=== PATIENT | female | born 1950 | race Caucasian/White ===

== ENCOUNTER 2022-06-20 14:29 | Inpatient (IN) | payer OTHER ==
[2022-06-20] MEDS ORDERED: MEROPENEM 500 MG in DEXTROSE 5%-WATER 100 ML IVPB ONE (16:13)
[2022-06-20] MEDS ORDERED: MEROPENEM 500 MG VIAL (RESTRICTED TO ID) IVPB ONE (16:28)
[2022-06-20 17:11] LABS: BASO % 0.7 % (0-2.0); EOS % 2.6 % (0-4.5); HEMATOCRIT 34.5 % (32.4-45.2); HEMOGLOBIN 11.2 GM/dL (10.7-15.3); LYMPH % 19.6 % (8-40); MCH 25.4 pg (25.7-33.7); MCHC 32.4 g/dl (32.0-36.0); MEAN CELL VOLUME 78.5 fl (80-96); MEAN PLT VOLUME 7.6 fl (7.5-11.1); MONO % 6.2 % (3.8-10.2); NEUT % 70.9 % (42.8-82.8); PLATELET COUNT 377 10^3/uL (134-434); RBC 4.39 M/mm3 (3.60-5.2); RDW 19.2 % (11.6-15.6); WHITE BLOOD COUNT 6.2 K/mm3 (4.0-10.0)
[2022-06-20 17:30] LABS: CALCIUM 8.6 mg/dL (8.5-10.1)
[2022-06-20 17:31] LABS: ALBUMIN 2.7 g/dl (3.4-5.0); BLOOD UREA NITROGEN 14.9 mg/dL (7-18)
[2022-06-20 17:33] LABS: ACTIVATED PTT 32.4 SECONDS (25.2-36.5); INR 1.17 (0.83-1.09); PROTHROMBIN TIME (PATIENT) 13.5 SEC (9.7-13.0)
[2022-06-20 17:35] LABS: CREATININE 0.8 mg/dL (0.55-1.3)
[2022-06-20 17:36] LABS: BILIRUBIN,TOTAL 0.2 mg/dL (0.2-1); TOT PROT 8.4 g/dl (6.4-8.2)
[2022-06-20] MEDS: VANCOMYCIN/WATER FOR INJ (PEG) 1,000 MG/200 ML BAG IVPB SCH (22:51)
[2022-06-20] MEDS: INSULIN SLIDING SCALE (NOVOLOG) 1 VIAL SQ SCH (22:51)
[2022-06-21] MEDS: MEROPENEM 1 GM in DEXTROSE 5%-WATER 100 ML IVPB SCH ×5 (02:38→17:52)
[2022-06-21 04:39] VITALS: BMI 33.5
[2022-06-21] MEDS: INSULIN SLIDING SCALE (NOVOLOG) 1 VIAL SQ SCH ×4 (06:43→22:35)
[2022-06-21 08:50] LABS: BASO % 0.1 % (0-2.0); EOS % 0.8 % (0-4.5); HEMATOCRIT 39.3 % (32.4-45.2); HEMOGLOBIN 12.4 GM/dL (10.7-15.3); LYMPH % 4.7 % (8-40); MCH 24.5 pg (25.7-33.7); MCHC 31.6 g/dl (32.0-36.0); MEAN CELL VOLUME 77.5 fl (80-96); MEAN PLT VOLUME 7.5 fl (7.5-11.1); MONO % 2.9 % (3.8-10.2); NEUT % 91.5 % (42.8-82.8); PLATELET COUNT 388 10^3/uL (134-434); RBC 5.07 M/mm3 (3.60-5.2); RDW 19.6 % (11.6-15.6); WHITE BLOOD COUNT 12.2 K/mm3 (4.0-10.0)
[2022-06-21] MEDS: VANCOMYCIN/WATER FOR INJ (PEG) 1,000 MG/200 ML BAG IVPB SCH (09:14)
[2022-06-21 09:22] LABS: ALBUMIN 2.7 g/dl (3.4-5.0); CALCIUM 8.8 mg/dL (8.5-10.1)
[2022-06-21 09:23] LABS: BLOOD UREA NITROGEN 12.3 mg/dL (7-18)
[2022-06-21 09:25] LABS: CREATININE 0.6 mg/dL (0.55-1.3)
[2022-06-21 09:27] LABS: BILIRUBIN,TOTAL 0.6 mg/dL (0.2-1); TOT PROT 8.4 g/dl (6.4-8.2)
[2022-06-21 09:37] LABS: ANISOCYTOSIS 1+; MACROCYTOSIS 1+
[2022-06-21] MEDS ORDERED: LOSARTAN POTASSIUM 25 MG TABLET PO SCH (10:00)
[2022-06-21] MEDS: COLLAGENASE CLOSTRIDIUM HIST. 30 GRAMS TUBE TP SCH (15:21)
[2022-06-21] MEDS: LOSARTAN POTASSIUM 25 MG TABLET PO SCH (15:21)
[2022-06-21] MEDS: DOXYCYCLINE HYCLATE 100 MG CAPSULE PO SCH (17:42)
[2022-06-21] MEDS: ACETAMINOPHEN 325 MG TABLET (FP) PO PRN (17:44)
[2022-06-21] MEDS: GABAPENTIN 300 MG CAPSULE PO SCH ×2 (17:44→22:25)
[2022-06-21] MEDS: VANCOMYCIN 1,000 MG in DEXTROSE 5%-WATER - 250 ML IVPB SCH ×2 (17:47→17:52)
[2022-06-21] MEDS: ROSUVASTATIN CA 10 MG TABLET PO SCH (18:28)
[2022-06-21] MEDS: LEVOTHYROXINE 75 MCG, LEVOTHYROXINE 100 MCG PO SCH (18:28)
[2022-06-21] MEDS ORDERED: PATIENT'S OWN MEDICATION (NON-FORMULARY) (Levothyroxine Sodium [Levothyroxine] 175 MCG Cap PO SCH (18:30)
[2022-06-22] MEDS: MEROPENEM 1 GM in DEXTROSE 5%-WATER 100 ML IVPB SCH ×3 (01:33→17:22)
[2022-06-22] MEDS: LEVOTHYROXINE 75 MCG, LEVOTHYROXINE 100 MCG PO SCH (06:33)
[2022-06-22] MEDS: GABAPENTIN 300 MG CAPSULE PO SCH ×3 (06:33→21:37)
[2022-06-22] MEDS: INSULIN SLIDING SCALE (NOVOLOG) 1 VIAL SQ SCH ×4 (06:43→21:42)
[2022-06-22 08:36] LABS: BASO % 0.4 % (0-2.0); EOS % 3.6 % (0-4.5); HEMATOCRIT 34.8 % (32.4-45.2); HEMOGLOBIN 11.1 GM/dL (10.7-15.3); LYMPH % 24.4 % (8-40); MCH 24.6 pg (25.7-33.7); MCHC 31.9 g/dl (32.0-36.0); MEAN CELL VOLUME 77.3 fl (80-96); MEAN PLT VOLUME 7.2 fl (7.5-11.1); MONO % 8.3 % (3.8-10.2); NEUT % 63.3 % (42.8-82.8); PLATELET COUNT 338 10^3/uL (134-434); RBC 4.51 M/mm3 (3.60-5.2); RDW 19.2 % (11.6-15.6)
[2022-06-22 08:49] LABS: ALBUMIN 2.2 g/dl (3.4-5.0); BLOOD UREA NITROGEN 11.7 mg/dL (7-18); CALCIUM 8.4 mg/dL (8.5-10.1)
[2022-06-22 08:52] LABS: CREATININE 0.6 mg/dL (0.55-1.3)
[2022-06-22 08:53] LABS: BILIRUBIN,TOTAL 0.4 mg/dL (0.2-1); TOT PROT 7.3 g/dl (6.4-8.2)
[2022-06-22] MEDS: DOXYCYCLINE HYCLATE 100 MG CAPSULE PO SCH ×2 (10:03→17:22)
[2022-06-22] MEDS: LOSARTAN POTASSIUM 25 MG TABLET PO SCH (10:04)
[2022-06-22] MEDS: COLLAGENASE CLOSTRIDIUM HIST. 30 GRAMS TUBE TP SCH (10:05)
[2022-06-22] MEDS: ACETAMINOPHEN 325 MG TABLET (FP) PO PRN (17:21)
[2022-06-22] MEDS: ROSUVASTATIN CA 10 MG TABLET PO SCH (21:37)
[2022-06-23] MEDS ORDERED: MEROPENEM 1 GM VIAL (RESTRICTED TO ID) IVPB ONE (01:51)
[2022-06-23] MEDS: MEROPENEM 1 GM in DEXTROSE 5%-WATER 100 ML IVPB SCH ×4 (01:57→17:44)
[2022-06-23] MEDS: ACETAMINOPHEN 325 MG TABLET (FP) PO PRN ×3 (02:03→22:06)
[2022-06-23] MEDS: GABAPENTIN 300 MG CAPSULE PO SCH ×3 (06:20→22:00)
[2022-06-23] MEDS: LEVOTHYROXINE 75 MCG, LEVOTHYROXINE 100 MCG PO SCH (06:20)
[2022-06-23] MEDS: INSULIN SLIDING SCALE (NOVOLOG) 1 VIAL SQ SCH ×4 (06:28→22:07)
[2022-06-23] MEDS: LOSARTAN POTASSIUM 25 MG TABLET PO SCH (09:54)
[2022-06-23] MEDS: DOXYCYCLINE HYCLATE 100 MG CAPSULE PO SCH ×2 (09:54→17:13)
[2022-06-23] MEDS: COLLAGENASE CLOSTRIDIUM HIST. 30 GRAMS TUBE TP SCH (10:06)
[2022-06-23] MEDS: ROSUVASTATIN CA 10 MG TABLET PO SCH (22:00)
[2022-06-24] MEDS: MEROPENEM 1 GM in DEXTROSE 5%-WATER 100 ML IVPB SCH ×3 (01:47→17:08)
[2022-06-24] MEDS: ACETAMINOPHEN 325 MG TABLET (FP) PO PRN ×2 (06:24→22:20)
[2022-06-24] MEDS: LOSARTAN POTASSIUM 25 MG TABLET PO SCH ×2 (06:24→10:37)
[2022-06-24] MEDS: GABAPENTIN 300 MG CAPSULE PO SCH ×3 (06:24→22:15)
[2022-06-24] MEDS: LEVOTHYROXINE 75 MCG, LEVOTHYROXINE 100 MCG PO SCH (06:24)
[2022-06-24] MEDS ORDERED: sitaGLIPtin PHOSPHATE 50 MG TABLET PO SCH (07:00)
[2022-06-24] MEDS: INSULIN SLIDING SCALE (NOVOLOG) 1 VIAL SQ SCH ×4 (08:05→22:16)
[2022-06-24 09:03] LABS: INR 1.24 (0.83-1.09); PROTHROMBIN TIME (PATIENT) 14.3 SEC (9.7-13.0)
[2022-06-24] MEDS: COLLAGENASE CLOSTRIDIUM HIST. 30 GRAMS TUBE TP SCH (10:31)
[2022-06-24] MEDS ORDERED: D5-1/2NS+10 MEQ KCL - 10 MEQ/1,000 ML INFUS.BAG IV SCH (10:45)
[2022-06-24] MEDS ORDERED: BACITRACIN ZINC 15 GM TUBE TOPICAL OINTMENT ONE (13:00)
[2022-06-24] MEDS ORDERED: LIDOCAINE HCL 1%, 10 MG/ML (10ML VIAL) MDV ONE (13:00)
[2022-06-24] MEDS ORDERED: DEXAMETHASONE SOD PHOSPHATE 4 MG/1 ML VIAL ONE (13:00)
[2022-06-24] MEDS ORDERED: BUPIVACAINE HCL/PF 0.5% (5MG/ML) 10 ML VIAL ONE (13:00)
[2022-06-24] MEDS ORDERED: GENTAMICIN SO4 80 MG/2 ML VIAL ONE ×2 (13:08→13:55)
[2022-06-24] MEDS ORDERED: ONDANSETRON 4 MG/2 ML VIAL IVPUSH PRN ×2 (13:08→14:27)
[2022-06-24] MEDS ORDERED: PROPOFOL 20 ML ONE (13:10)
[2022-06-24] MEDS ORDERED: MIDAZOLAM HCL 2 MG/2 ML SINGLE DOSE VIAL ONE (13:11)
[2022-06-24] MEDS ORDERED: LACTATED RINGERS SOLUTION 1,000 ML IV SCH ×2 (13:15→14:27)
[2022-06-24] MEDS ORDERED: LIDOCAINE HCL 1%, 10 MG/ML (20ML VIAL) INF ONE (13:27)
[2022-06-24] MEDS ORDERED: BUPIVACAINE HCL/PF 0.5% (5MG/ML) 10 ML VIAL IJ ONE (13:27)
[2022-06-24] MEDS ORDERED: GENTAMICIN SO4 80 MG/2 ML VIAL IVPB ONE ×2 (13:49)
[2022-06-24] MEDS ORDERED: ACETAMINOPHEN INJECTION 100 ML IVPB ONE (14:15)
[2022-06-24] MEDS ORDERED: ONDANSETRON 4 MG/2 ML VIAL ONE (14:16)
[2022-06-24] MEDS: D5-1/2NS+10 MEQ KCL - 10 MEQ/1,000 ML INFUS.BAG IV SCH (17:07)
[2022-06-24] MEDS: ROSUVASTATIN CA 10 MG TABLET PO SCH (22:15)
[2022-06-25] MEDS: MEROPENEM 1 GM in DEXTROSE 5%-WATER 100 ML IVPB SCH ×3 (02:39→17:09)
[2022-06-25] MEDS ORDERED: ACETAMINOPHEN 1000 MG/100 ML BAG IVPB ONE ×2 (02:45→03:20)
[2022-06-25] MEDS: sitaGLIPtin PHOSPHATE 50 MG TABLET PO SCH (06:57)
[2022-06-25] MEDS: GABAPENTIN 300 MG CAPSULE PO SCH ×3 (06:57→23:26)
[2022-06-25] MEDS: LEVOTHYROXINE 75 MCG, LEVOTHYROXINE 100 MCG PO SCH (06:58)
[2022-06-25] MEDS: INSULIN SLIDING SCALE (NOVOLOG) 1 VIAL SQ SCH ×4 (06:59→23:35)
[2022-06-25] MEDS: D5-1/2NS+10 MEQ KCL - 10 MEQ/1,000 ML INFUS.BAG IV SCH ×2 (07:07→14:57)
[2022-06-25 09:12] LABS: BASO % 0.6 % (0-2.0); EOS % 3.6 % (0-4.5); HEMATOCRIT 34.5 % (32.4-45.2); LYMPH % 24.9 % (8-40); MCH 24.7 pg (25.7-33.7); MEAN CELL VOLUME 77.1 fl (80-96); MEAN PLT VOLUME 7.6 fl (7.5-11.1); MONO % 7.8 % (3.8-10.2); NEUT % 63.1 % (42.8-82.8); PLATELET COUNT 305 10^3/uL (134-434); RBC 4.48 M/mm3 (3.60-5.2); RDW 18.9 % (11.6-15.6); WHITE BLOOD COUNT 5.6 K/mm3 (4.0-10.0)
[2022-06-25] MEDS: LOSARTAN POTASSIUM 25 MG TABLET PO SCH (09:22)
[2022-06-25] MEDS: ACETAMINOPHEN 325 MG TABLET (FP) PO PRN ×2 (09:22→15:12)
[2022-06-25 10:02] LABS: ALBUMIN 2.2 g/dl (3.4-5.0)
[2022-06-25 10:05] LABS: BLOOD UREA NITROGEN 13.3 mg/dL (7-18); CALCIUM 8.2 mg/dL (8.5-10.1)
[2022-06-25 10:07] LABS: CREATININE 0.6 mg/dL (0.55-1.3)
[2022-06-25 10:08] LABS: BILIRUBIN,TOTAL 0.2 mg/dL (0.2-1)
[2022-06-25 12:32] LABS: HIV INTERPRETATION NEGATIVE (NEGATIVE)
[2022-06-25] MEDS: traMADol HCL 50 MG TABLET PO PRN (13:19)
[2022-06-25] MEDS: KETOROLAC TROMETHAMINE 15 MG/ML VIAL IVPUSH PRN ×2 (17:08→23:25)
[2022-06-25] MEDS: ROSUVASTATIN CA 10 MG TABLET PO SCH (23:27)
[2022-06-26] MEDS: MEROPENEM 1 GM in DEXTROSE 5%-WATER 100 ML IVPB SCH ×3 (02:07→18:05)
[2022-06-26] MEDS: traMADol HCL 50 MG TABLET PO PRN ×2 (06:23→22:16)
[2022-06-26] MEDS: LEVOTHYROXINE 75 MCG, LEVOTHYROXINE 100 MCG PO SCH (06:24)
[2022-06-26] MEDS: GABAPENTIN 300 MG CAPSULE PO SCH ×3 (06:25→22:19)
[2022-06-26] MEDS: sitaGLIPtin PHOSPHATE 50 MG TABLET PO SCH (06:25)
[2022-06-26] MEDS: INSULIN SLIDING SCALE (NOVOLOG) 1 VIAL SQ SCH ×4 (06:32→23:58)
[2022-06-26] MEDS: LOSARTAN POTASSIUM 25 MG TABLET PO SCH (10:55)
[2022-06-26] MEDS: KETOROLAC TROMETHAMINE 15 MG/ML VIAL IVPUSH PRN (13:10)
[2022-06-26] MEDS: D5-1/2NS+10 MEQ KCL - 10 MEQ/1,000 ML INFUS.BAG IV SCH (15:07)
[2022-06-26] MEDS: ROSUVASTATIN CA 10 MG TABLET PO SCH (22:16)
[2022-06-27] MEDS: MEROPENEM 1 GM in DEXTROSE 5%-WATER 100 ML IVPB SCH ×3 (01:32→17:22)
[2022-06-27] MEDS: LEVOTHYROXINE 75 MCG, LEVOTHYROXINE 100 MCG PO SCH (06:16)
[2022-06-27] MEDS: GABAPENTIN 300 MG CAPSULE PO SCH ×3 (06:16→21:20)
[2022-06-27] MEDS: sitaGLIPtin PHOSPHATE 50 MG TABLET PO SCH (06:16)
[2022-06-27] MEDS: INSULIN SLIDING SCALE (NOVOLOG) 1 VIAL SQ SCH ×4 (06:22→21:26)
[2022-06-27] MEDS: ACETAMINOPHEN 325 MG TABLET (FP) PO PRN (06:51)
[2022-06-27] MEDS: LOSARTAN POTASSIUM 25 MG TABLET PO SCH (09:12)
[2022-06-27] MEDS: MULTIVITAMINS THER W-MINERALS COMBO TABLET (FP) PO SCH (10:34)
[2022-06-27] MEDS ORDERED: VANCOMYCIN/WATER 1250 MG 1,250 MG/250 ML BAG IVPB SCH (12:30)
[2022-06-27] MEDS: traMADol HCL 50 MG TABLET PO PRN (13:52)
[2022-06-27] MEDS ORDERED: LOPERAMIDE HCL 2 MG CAPSULE PO PRN (15:01)
[2022-06-27] MEDS ORDERED: MAG HYDROX/AL HYDROX/SIMETH 30 ML UNIT-DOSE CUP PO ONE (15:30)
[2022-06-27] MEDS: LACTOBACILLUS ACIDOPHILUS 1 TABLET PO SCH (15:33)
[2022-06-27] MEDS: D5-1/2NS+10 MEQ KCL - 10 MEQ/1,000 ML INFUS.BAG IV SCH ×2 (15:34)
[2022-06-27] MEDS: ROSUVASTATIN CA 10 MG TABLET PO SCH (21:20)
[2022-06-28] MEDS: VANCOMYCIN 250 MG/5 ML ORAL SOLUTION PO SCH ×4 (00:27→17:32)
[2022-06-28] MEDS: MEROPENEM 1 GM in DEXTROSE 5%-WATER 100 ML IVPB SCH (01:49)
[2022-06-28] MEDS: GABAPENTIN 300 MG CAPSULE PO SCH ×3 (05:59→21:41)
[2022-06-28] MEDS: sitaGLIPtin PHOSPHATE 50 MG TABLET PO SCH (05:59)
[2022-06-28] MEDS: LEVOTHYROXINE 75 MCG, LEVOTHYROXINE 100 MCG PO SCH (06:01)
[2022-06-28] MEDS: INSULIN SLIDING SCALE (NOVOLOG) 1 VIAL SQ SCH ×4 (06:11→23:04)
[2022-06-28] MEDS: D5-1/2NS+10 MEQ KCL - 10 MEQ/1,000 ML INFUS.BAG IV SCH ×3 (06:32→21:12)
[2022-06-28] MEDS: LOSARTAN POTASSIUM 25 MG TABLET PO SCH (09:37)
[2022-06-28] MEDS: LACTOBACILLUS ACIDOPHILUS 1 TABLET PO SCH (09:37)
[2022-06-28] MEDS: MULTIVITAMINS THER W-MINERALS COMBO TABLET (FP) PO SCH (09:37)
[2022-06-28] MEDS: KETOROLAC TROMETHAMINE 15 MG/ML VIAL IVPUSH PRN (21:14)
[2022-06-28] MEDS: ROSUVASTATIN CA 10 MG TABLET PO SCH (21:41)
[2022-06-29] MEDS: VANCOMYCIN 250 MG/5 ML ORAL SOLUTION PO SCH ×4 (00:51→17:20)
[2022-06-29] MEDS: GABAPENTIN 300 MG CAPSULE PO SCH ×3 (06:16→22:19)
[2022-06-29] MEDS: LEVOTHYROXINE 75 MCG, LEVOTHYROXINE 100 MCG PO SCH (06:16)
[2022-06-29] MEDS: ACETAMINOPHEN 325 MG TABLET (FP) PO PRN (06:17)
[2022-06-29] MEDS: sitaGLIPtin PHOSPHATE 50 MG TABLET PO SCH (06:17)
[2022-06-29] MEDS: INSULIN SLIDING SCALE (NOVOLOG) 1 VIAL SQ SCH ×3 (06:57→17:17)
[2022-06-29 09:20] LABS: HEMATOCRIT 37.9 % (32.4-45.2); HEMOGLOBIN 12.1 GM/dL (10.7-15.3); MCH 25.3 pg (25.7-33.7); MCHC 31.9 g/dl (32.0-36.0); MEAN CELL VOLUME 79.3 fl (80-96); MEAN PLT VOLUME 7.9 fl (7.5-11.1); PLATELET COUNT 310 10^3/uL (134-434); RBC 4.78 M/mm3 (3.60-5.2); RDW 19.1 % (11.6-15.6); WHITE BLOOD COUNT 4.8 K/mm3 (4.0-10.0)
[2022-06-29 09:40] LABS: ALBUMIN 2.4 g/dl (3.4-5.0); BLOOD UREA NITROGEN 11.4 mg/dL (7-18); CALCIUM 8.6 mg/dL (8.5-10.1)
[2022-06-29] MEDS: MULTIVITAMINS THER W-MINERALS COMBO TABLET (FP) PO SCH (09:40)
[2022-06-29] MEDS: LOSARTAN POTASSIUM 25 MG TABLET PO SCH (09:40)
[2022-06-29] MEDS: LACTOBACILLUS ACIDOPHILUS 1 TABLET PO SCH (09:40)
[2022-06-29 09:43] LABS: CREATININE 0.7 mg/dL (0.55-1.3)
[2022-06-29 09:44] LABS: BILIRUBIN,TOTAL 0.4 mg/dL (0.2-1)
[2022-06-29] MEDS: D5-1/2NS+10 MEQ KCL - 10 MEQ/1,000 ML INFUS.BAG IV SCH (17:19)
[2022-06-29] MEDS: ROSUVASTATIN CA 10 MG TABLET PO SCH (22:19)
[2022-06-30] MEDS: INSULIN SLIDING SCALE (NOVOLOG) 1 VIAL SQ SCH ×5 (00:04→21:58)
[2022-06-30] MEDS: ACETAMINOPHEN 325 MG TABLET (FP) PO PRN ×2 (00:04→10:18)
[2022-06-30] MEDS: VANCOMYCIN 250 MG/5 ML ORAL SOLUTION PO SCH ×5 (00:04→23:06)
[2022-06-30] MEDS: sitaGLIPtin PHOSPHATE 50 MG TABLET PO SCH (06:34)
[2022-06-30] MEDS: LEVOTHYROXINE 75 MCG, LEVOTHYROXINE 100 MCG PO SCH (06:34)
[2022-06-30] MEDS: GABAPENTIN 300 MG CAPSULE PO SCH ×3 (06:34→21:39)
[2022-06-30] MEDS: LACTOBACILLUS ACIDOPHILUS 1 TABLET PO SCH (10:02)
[2022-06-30] MEDS: MULTIVITAMINS THER W-MINERALS COMBO TABLET (FP) PO SCH (10:02)
[2022-06-30] MEDS: LOSARTAN POTASSIUM 25 MG TABLET PO SCH (10:02)
[2022-06-30] MEDS: D5-1/2NS+10 MEQ KCL - 10 MEQ/1,000 ML INFUS.BAG IV SCH (16:10)
[2022-06-30] MEDS: ROSUVASTATIN CA 10 MG TABLET PO SCH (21:40)
[2022-07-01] MEDS: VANCOMYCIN 250 MG/5 ML ORAL SOLUTION PO SCH ×3 (06:18→17:04)
[2022-07-01] MEDS: GABAPENTIN 300 MG CAPSULE PO SCH ×3 (06:18→23:39)
[2022-07-01] MEDS: INSULIN SLIDING SCALE (NOVOLOG) 1 VIAL SQ SCH ×4 (07:27→23:45)
[2022-07-01] MEDS: sitaGLIPtin PHOSPHATE 50 MG TABLET PO SCH (07:27)
[2022-07-01] MEDS: LEVOTHYROXINE 75 MCG, LEVOTHYROXINE 100 MCG PO SCH (07:28)
[2022-07-01] MEDS: LOSARTAN POTASSIUM 25 MG TABLET PO SCH (09:17)
[2022-07-01] MEDS: LACTOBACILLUS ACIDOPHILUS 1 TABLET PO SCH (09:17)
[2022-07-01] MEDS: MULTIVITAMINS THER W-MINERALS COMBO TABLET (FP) PO SCH (09:17)
[2022-07-01 09:49] LABS: INR 1.14 (0.83-1.09); PROTHROMBIN TIME (PATIENT) 13.2 SEC (9.7-13.0)
[2022-07-01] MEDS ORDERED: LIDOCAINE HCL/PF 2% SDV 5ML VIAL ONE (10:39)
[2022-07-01] MEDS ORDERED: MIDAZOLAM HCL 2 MG/2 ML SINGLE DOSE VIAL ONE ×2 (10:40→11:09)
[2022-07-01] MEDS ORDERED: PROPOFOL 60 ML ONE (10:40)
[2022-07-01] MEDS ORDERED: LIDOCAINE HCL 1%, 10 MG/ML (10ML VIAL) MDV ONE (10:48)
[2022-07-01] MEDS ORDERED: BUPIVACAINE HCL/PF 0.5% (5MG/ML) 10 ML VIAL ONE (10:49)
[2022-07-01] MEDS ORDERED: LIDOCAINE 1% P/F 10 MG/ML VIAL INF ONE (11:15)
[2022-07-01] MEDS ORDERED: BUPIVACAINE HCL/PF 0.5% (5MG/ML) 10 ML VIAL IJ ONE (11:15)
[2022-07-01] MEDS ORDERED: ONDANSETRON 4 MG/2 ML VIAL IVPUSH PRN (11:40)
[2022-07-01] MEDS ORDERED: PROMETHAZINE HCL 25 MG/1 ML VIAL IVPB PRN (11:40)
[2022-07-01] MEDS ORDERED: ACETAMINOPHEN 1000 MG/100 ML BAG IVPB ONE (11:41)
[2022-07-01] MEDS ORDERED: KETOROLAC TROMETHAMINE 30 MG/1 ML VIAL IVPUSH ONE (11:41)
[2022-07-01] MEDS ORDERED: KETOROLAC TROMETHAMINE 30 MG/1 ML VIAL ONE (11:43)
[2022-07-01] MEDS ORDERED: ACETAMINOPHEN INJECTION 100 ML IVPB ONE (11:43)
[2022-07-01] MEDS ORDERED: D5-1/2NS+10 MEQ KCL - 10 MEQ/1,000 ML INFUS.BAG IV SCH (11:49)
[2022-07-01] MEDS ORDERED: HYDROmorphone HCl 2 MG/ML VIAL ONE (12:17)
[2022-07-01] MEDS: HYDROmorphone HCl 2 MG/ML VIAL IVPUSH PRN ×2 (12:20→12:35)
[2022-07-01] MEDS: LACTATED RINGERS SOLUTION 1,000 ML IV SCH (14:14)
[2022-07-01] MEDS: ROSUVASTATIN CA 10 MG TABLET PO SCH (23:39)
[2022-07-02] MEDS: VANCOMYCIN 250 MG/5 ML ORAL SOLUTION PO SCH ×5 (00:35→23:19)
[2022-07-02] MEDS ORDERED: diphenhydrAMINE HCL 25 MG CAPSULE (FP) PO ONE (05:14)
[2022-07-02] MEDS ORDERED: FAMOTIDINE 20 MG/50 ML IVPB 20 MG/50 ML MG IVPB ONE (05:16)
[2022-07-02] MEDS ORDERED: FLUCONAZOLE 50 MG TABLET PO ONE (05:29)
[2022-07-02] MEDS: GABAPENTIN 300 MG CAPSULE PO SCH ×3 (05:58→23:16)
[2022-07-02] MEDS ORDERED: FLUCONAZOLE 150 MG TABLET PO ONE ×2 (06:00→20:00)
[2022-07-02] MEDS: sitaGLIPtin PHOSPHATE 50 MG TABLET PO SCH (06:01)
[2022-07-02] MEDS: LEVOTHYROXINE 75 MCG, LEVOTHYROXINE 100 MCG PO SCH (06:01)
[2022-07-02] MEDS: INSULIN SLIDING SCALE (NOVOLOG) 1 VIAL SQ SCH ×4 (06:08→23:17)
[2022-07-02 09:15] LABS: HEMATOCRIT 36.1 % (32.4-45.2); HEMOGLOBIN 11.6 GM/dL (10.7-15.3); MCH 25.3 pg (25.7-33.7); MCHC 32.1 g/dl (32.0-36.0); MEAN CELL VOLUME 78.9 fl (80-96); PLATELET COUNT 306 10^3/uL (134-434); RBC 4.58 M/mm3 (3.60-5.2); RDW 18.8 % (11.6-15.6); WHITE BLOOD COUNT 6.4 K/mm3 (4.0-10.0)
[2022-07-02 09:52] LABS: ALBUMIN 2.6 g/dl (3.4-5.0)
[2022-07-02 09:53] LABS: BLOOD UREA NITROGEN 10.2 mg/dL (7-18); CALCIUM 8.9 mg/dL (8.5-10.1)
[2022-07-02 09:55] LABS: CREATININE 0.6 mg/dL (0.55-1.3)
[2022-07-02 09:56] LABS: BILIRUBIN,TOTAL 0.2 mg/dL (0.2-1)
[2022-07-02] MEDS: MULTIVITAMINS THER W-MINERALS COMBO TABLET (FP) PO SCH (10:33)
[2022-07-02] MEDS: LACTOBACILLUS ACIDOPHILUS 1 TABLET PO SCH (10:33)
[2022-07-02] MEDS: methylPREDNISolone NA SUCC 40 MG/1 ML VIAL IVPUSH SCH (10:33)
[2022-07-02] MEDS: diphenhydrAMINE HCL 25 MG CAPSULE (FP) PO PRN ×2 (10:33→16:49)
[2022-07-02] MEDS: LOSARTAN POTASSIUM 50 MG TABLET PO SCH (10:33)
[2022-07-02] MEDS ORDERED: CEFTRIAXONE 2 GM-D5W BAG 2 GM/50 ML BAG IVPB SCH (13:00)
[2022-07-02] MEDS ORDERED: CEFTRIAXONE 2 GM in DEXTROSE 5%-WATER 50 ML IVPB SCH (13:07)
[2022-07-02] MEDS ORDERED: D5-1/2NS+10 MEQ KCL - 10 MEQ/1,000 ML INFUS.BAG IV SCH (13:15)
[2022-07-02] MEDS: LACTATED RINGERS SOLUTION 1,000 ML IV SCH (14:39)
[2022-07-02] MEDS: VANCOMYCIN/WATER 1250 MG 1,250 MG/250 ML BAG IVPB SCH (14:40)
[2022-07-02] MEDS: ACETAMINOPHEN 325 MG TABLET (FP) PO PRN (16:49)
[2022-07-02] MEDS ORDERED: INSULIN (NOVOLOG) ASPART 100 UNITS/ML 10ML VIAL ONE (21:12)
[2022-07-02] MEDS: ROSUVASTATIN CA 10 MG TABLET PO SCH (23:16)
[2022-07-03] MEDS: ACETAMINOPHEN 325 MG TABLET (FP) PO PRN ×2 (04:22→21:28)
[2022-07-03] MEDS: LEVOTHYROXINE 75 MCG, LEVOTHYROXINE 100 MCG PO SCH (06:59)
[2022-07-03] MEDS: sitaGLIPtin PHOSPHATE 50 MG TABLET PO SCH (06:59)
[2022-07-03] MEDS: INSULIN SLIDING SCALE (NOVOLOG) 1 VIAL SQ SCH ×3 (07:00→17:03)
[2022-07-03] MEDS: GABAPENTIN 300 MG CAPSULE PO SCH ×3 (07:00→21:28)
[2022-07-03] MEDS: VANCOMYCIN 250 MG/5 ML ORAL SOLUTION PO SCH ×3 (07:00→17:01)
[2022-07-03] MEDS ORDERED: FLUCONAZOLE 150 MG TABLET PO ONE (09:21)
[2022-07-03] MEDS: diphenhydrAMINE HCL 25 MG CAPSULE (FP) PO PRN (11:28)
[2022-07-03] MEDS: MULTIVITAMINS THER W-MINERALS COMBO TABLET (FP) PO SCH (11:28)
[2022-07-03] MEDS: LACTOBACILLUS ACIDOPHILUS 1 TABLET PO SCH (11:28)
[2022-07-03] MEDS: LOSARTAN POTASSIUM 50 MG TABLET PO SCH (11:28)
[2022-07-03] MEDS: methylPREDNISolone NA SUCC 40 MG/1 ML VIAL IVPUSH SCH (11:29)
[2022-07-03] MEDS: CEFTRIAXONE 2 GM in DEXTROSE 5%-WATER 100 ML IVPB SCH (11:29)
[2022-07-03] MEDS: VANCOMYCIN/WATER 1250 MG 1,250 MG/250 ML BAG IVPB SCH (13:08)
[2022-07-03] MEDS: ROSUVASTATIN CA 10 MG TABLET PO SCH (21:28)
[2022-07-03] MEDS ORDERED: MICONAZOLE NITRATE 2% VAGINAL CREAM 45 GM TUBE VG SCH (22:00)
[2022-07-04] MEDS: VANCOMYCIN 250 MG/5 ML ORAL SOLUTION PO SCH ×4 (00:10→17:33)
[2022-07-04] MEDS: INSULIN SLIDING SCALE (NOVOLOG) 1 VIAL SQ SCH ×4 (06:16→17:35)
[2022-07-04] MEDS: sitaGLIPtin PHOSPHATE 50 MG TABLET PO SCH (06:22)
[2022-07-04] MEDS: GABAPENTIN 300 MG CAPSULE PO SCH ×2 (06:22→13:25)
[2022-07-04] MEDS: LEVOTHYROXINE 75 MCG, LEVOTHYROXINE 100 MCG PO SCH (06:23)
[2022-07-04] MEDS: LOSARTAN POTASSIUM 50 MG TABLET PO SCH (11:54)
[2022-07-04] MEDS: LACTOBACILLUS ACIDOPHILUS 1 TABLET PO SCH (11:54)
[2022-07-04] MEDS: MULTIVITAMINS THER W-MINERALS COMBO TABLET (FP) PO SCH (11:54)
[2022-07-04] MEDS: CEFTRIAXONE 2 GM in DEXTROSE 5%-WATER 100 ML IVPB SCH (11:54)
[2022-07-04] MEDS: methylPREDNISolone NA SUCC 40 MG/1 ML VIAL IVPUSH SCH (11:55)
[2022-07-04] MEDS: VANCOMYCIN/WATER 1250 MG 1,250 MG/250 ML BAG IVPB SCH (13:26)
[2022-07-04 15:13] VITALS: BP 142/76; PULSE 66; RESP 18; TEMP 97.4
[2022-07-04] MEDS: ACETAMINOPHEN 325 MG TABLET (FP) PO PRN (17:33)
== END 2022-07-04 18:30 | disposition home health service (06) | DRG 317 ==
LOC: JER 14:29 → JERBED 17:57 → OBSVTOIN 20:36 → J8W 21:36
PROVIDERS: ADMIT Internal Medicine; ATTEND Family Medicine
PROC: 0JDQ0ZZ Extraction of Right Foot Subcutaneous Tissue and Fascia, Open Approach (ICD-10-PCS; principal; 2022-06-24 12:30)
PROC: 02HV33Z Insertion of Infusion Device into Superior Vena Cava, Percutaneous Approach (ICD-10-PCS; 2022-07-04)
PROC: B548ZZA Ultrasonography of Superior Vena Cava, Guidance (ICD-10-PCS; 2022-07-04)
DX: E11.621 Type 2 diabetes mellitus with foot ulcer (principal); E11.69 Type 2 diabetes mellitus with other specified complication; M86.8X7 Other osteomyelitis, ankle and foot; A04.72 Enterocolitis due to Clostridium difficile, not specified as recurrent; L03.115 Cellulitis of right lower limb; I10 Essential (primary) hypertension; E78.5 Hyperlipidemia, unspecified; L97.519 Non-pressure chronic ulcer of other part of right foot with unspecified severity; E03.9 Hypothyroidism, unspecified; L27.0 Generalized skin eruption due to drugs and medicaments taken internally; Z95.0 Presence of cardiac pacemaker; Z68.33 Body mass index [BMI] 33.0-33.9, adult; M24.451 Recurrent dislocation, right hip
CPT/HCPCS: 36415; 36569; 71045-TC-FY; 73502-TC-RT-FY; 73630-TC-RT-FY; 75635-TC; 78315-TC; 80053; 80061; 82962; 83036; 83735; 84443; 85025; 85027; 85610; 85730; 86850; 86900; 86901; 87040; 87070; 87075; 87106; 87186; 87205; 87324; 87340; 87389; 87449; 88304-TC; 93005; 93010; 93926-TC; 94760; 97116-GP; 97161-GP; 99285-25; A9503; C9803-CS; G0378; G0463-25; Q9967; U0003; U0005

== ENCOUNTER 2022-07-24 22:49 | Day surgery (SDC) | payer OTHER ==
[2022-07-24] MEDS ORDERED: DAPTOMYCIN 320 MG in SODIUM CHLORIDE 50 ML IVPB ONE (23:56)
[2022-07-25] MEDS ORDERED: ceFAZolin SODIUM 1 GM VIAL IVPB ONE
[2022-07-25 00:28] LABS: BASO % 1.2 % (0-2.0); EOS % 3.1 % (0-4.5); HEMATOCRIT 32.3 % (32.4-45.2); HEMOGLOBIN 10.6 GM/dL (10.7-15.3); LYMPH % 22.4 % (8-40); MCH 25.6 pg (25.7-33.7); MCHC 32.8 g/dl (32.0-36.0); MEAN CELL VOLUME 77.9 fl (80-96); MEAN PLT VOLUME 7.5 fl (7.5-11.1); MONO % 7.9 % (3.8-10.2); NEUT % 65.4 % (42.8-82.8); PLATELET COUNT 305 10^3/uL (134-434); RBC 4.15 M/mm3 (3.60-5.2); RDW 19.3 % (11.6-15.6); WHITE BLOOD COUNT 7.8 K/mm3 (4.0-10.0)
[2022-07-25 02:23] LABS: INR 1.14 (0.83-1.09); PROTHROMBIN TIME (PATIENT) 13.2 SEC (9.7-13.0)
[2022-07-25 02:24] LABS: BLOOD UREA NITROGEN 17.4 mg/dL (7-18); CALCIUM 8.6 mg/dL (8.5-10.1)
[2022-07-25 02:25] LABS: ALBUMIN 2.8 g/dl (3.4-5.0)
[2022-07-25 02:26] LABS: ACTIVATED PTT 31.5 SECONDS (25.2-36.5)
[2022-07-25 02:27] LABS: CREATININE 0.8 mg/dL (0.55-1.3)
[2022-07-25 02:29] LABS: BILIRUBIN,TOTAL 0.3 mg/dL (0.2-1); TOT PROT 7.8 g/dl (6.4-8.2)
[2022-07-25] MEDS ORDERED: ACETAMINOPHEN 325 MG TABLET (FP) PO PRN ×2 (03:30→13:07)
[2022-07-25] MEDS ORDERED: DOCUSATE SODIUM 100 MG CAPSULE (FP) PO PRN ×2 (03:30→13:07)
[2022-07-25] MEDS ORDERED: SODIUM CHLORIDE 1,000 ML IV SCH (03:30)
[2022-07-25 07:51] LABS: MAGNESIUM 2.1 mg/dL (1.8-2.4)
[2022-07-25 07:55] LABS: PHOSPHOROUS 3.2 mg/dL (2.5-4.9)
[2022-07-25] MEDS ORDERED: ACETAMINOPHEN 325 MG TABLET (FP) ONE (09:15)
[2022-07-25] MEDS ORDERED: HEPARIN NA (PORCINE) 5,000 UNITS/ML 1ML VIAL ONE (10:43)
[2022-07-25] MEDS ORDERED: CLINDAMYCIN 900 MG PREMIX BAG IVPB ONE (12:00)
[2022-07-25] MEDS ORDERED: MIDAZOLAM HCL 2 MG/2 ML SINGLE DOSE VIAL ONE (12:02)
[2022-07-25] MEDS ORDERED: LIDOCAINE HCL 1%, 10 MG/ML (20ML VIAL) NR ONE ×3 (12:04)
[2022-07-25] MEDS ORDERED: HEPARIN NA (PORCINE) 5,000 UNITS/ML 1ML VIAL SQ ONE ×2 (12:06)
[2022-07-25] MEDS: SODIUM CHLORIDE 1,000 ML IV SCH (14:25)
[2022-07-25] MEDS: INSULIN SLIDING SCALE (NOVOLOG) 1 VIAL SQ SCH ×4 (16:25→21:30)
[2022-07-25] MEDS ORDERED: ALBUTEROL SO4 HFA INHALER IH PRN (21:25)
[2022-07-25] MEDS ORDERED: LOSARTAN POTASSIUM 50 MG TABLET PO SCH (21:30)
[2022-07-25] MEDS ORDERED: MONTELUKAST NA 10 MG TABLET PO SCH (22:00)
[2022-07-25] MEDS: GABAPENTIN 300 MG CAPSULE PO SCH (22:15)
[2022-07-26] MEDS ORDERED: ceFAZolin SODIUM 1 GM VIAL IVPB ONE
[2022-07-26] MEDS: SODIUM CHLORIDE 1,000 ML IV SCH ×3 (04:09→20:04)
[2022-07-26] MEDS: GABAPENTIN 300 MG CAPSULE PO SCH ×3 (06:39→21:39)
[2022-07-26] MEDS: INSULIN SLIDING SCALE (NOVOLOG) 1 VIAL SQ SCH ×4 (06:51→21:54)
[2022-07-26] MEDS ORDERED: LEVOTHYROXINE NA 100 MCG TABLET (FP) PO SCH (07:00)
[2022-07-26] MEDS ORDERED: MIDAZOLAM HCL 2 MG/2 ML SINGLE DOSE VIAL ONE ×2 (08:39→08:58)
[2022-07-26] MEDS ORDERED: PROPOFOL 20 ML ONE (08:49)
[2022-07-26] MEDS ORDERED: BUPIVACAINE HCL/PF 0.5% (5MG/ML) 10 ML VIAL IJ ONE ×2 (08:51)
[2022-07-26] MEDS ORDERED: LIDOCAINE HCL 1%, 10 MG/ML (50 mL VIAL) INF ONE ×2 (08:51)
[2022-07-26] MEDS ORDERED: PROPOFOL 40 ML ONE (08:59)
[2022-07-26] MEDS ORDERED: GENTAMICIN SO4 80 MG/2 ML VIAL IVPB ONE (09:13)
[2022-07-26] MEDS ORDERED: ALBUTEROL SO4 HFA INHALER IH PRN (09:46)
[2022-07-26] MEDS ORDERED: DOCUSATE SODIUM 100 MG CAPSULE (FP) PO PRN (09:46)
[2022-07-26] MEDS ORDERED: PANTOPRAZOLE 40 MG TABLET PO SCH (10:00)
[2022-07-26] MEDS ORDERED: LACTOBACILLUS ACIDOPHILUS 1 TABLET PO SCH (10:00)
[2022-07-26] MEDS ORDERED: ROSUVASTATIN CA 10 MG TABLET PO SCH ×2 (10:00→22:00)
[2022-07-26] MEDS ORDERED: HYDROCHLOROTHIAZIDE 25 MG TABLET (FP) PO SCH (10:00)
[2022-07-26] MEDS ORDERED: FENTANYL CITRATE/PF 50 MCG/ML VIAL IVPUSH PRN (10:39)
[2022-07-26] MEDS: LACTOBACILLUS ACIDOPHILUS 1 TABLET PO SCH (11:21)
[2022-07-26] MEDS: HYDROCHLOROTHIAZIDE 25 MG TABLET (FP) PO SCH (11:22)
[2022-07-26] MEDS: PANTOPRAZOLE 40 MG TABLET PO SCH (11:22)
[2022-07-26] MEDS: LOSARTAN POTASSIUM 50 MG TABLET PO SCH (11:22)
[2022-07-26] MEDS ORDERED: VANCOMYCIN 1,000 MG in DEXTROSE 5%-WATER - 250 ML IVPB SCH (15:00)
[2022-07-26] MEDS ORDERED: DAPTOMYCIN 350 MG in SODIUM CHLORIDE 50 ML IVPB SCH (15:00)
[2022-07-26 15:18] LABS: INR 1.29 (0.83-1.09); PROTHROMBIN TIME (PATIENT) 14.9 SEC (9.7-13.0)
[2022-07-26] MEDS: CEFTRIAXONE 2 GM in DEXTROSE 5%-WATER 100 ML IVPB SCH (17:13)
[2022-07-26] MEDS: DAPTOMYCIN 350 MG in SODIUM CHLORIDE 50 ML IVPB SCH (17:14)
[2022-07-26] MEDS: MONTELUKAST NA 10 MG TABLET PO SCH (21:39)
[2022-07-27] MEDS: GABAPENTIN 300 MG CAPSULE PO SCH ×3 (06:46→22:55)
[2022-07-27] MEDS: LEVOTHYROXINE 100 MCG, LEVOTHYROXINE 75 MCG PO SCH (06:46)
[2022-07-27] MEDS: INSULIN SLIDING SCALE (NOVOLOG) 1 VIAL SQ SCH ×4 (06:56→23:20)
[2022-07-27] MEDS ORDERED: LEVOTHYROXINE NA 100 MCG TABLET (FP) PO SCH (07:00)
[2022-07-27] MEDS: HYDROCHLOROTHIAZIDE 25 MG TABLET (FP) PO SCH (09:31)
[2022-07-27] MEDS: CEFTRIAXONE 2 GM in DEXTROSE 5%-WATER 100 ML IVPB SCH (09:31)
[2022-07-27] MEDS: PANTOPRAZOLE 40 MG TABLET PO SCH (09:31)
[2022-07-27] MEDS: LACTOBACILLUS ACIDOPHILUS 1 TABLET PO SCH (09:31)
[2022-07-27] MEDS: LOSARTAN POTASSIUM 50 MG TABLET PO SCH (09:31)
[2022-07-27] MEDS: SODIUM CHLORIDE 1,000 ML IV SCH (11:07)
[2022-07-27] MEDS ORDERED: INSULIN (NOVOLOG) ASPART 100 UNITS/ML 10ML VIAL ONE (11:09)
[2022-07-27 15:06] VITALS: BMI 33.1
[2022-07-27] MEDS: DAPTOMYCIN 350 MG in SODIUM CHLORIDE 50 ML IVPB SCH (16:53)
[2022-07-27] MEDS ORDERED: IRON SUCROSE INJECTION 200 MG in SODIUM CHLORIDE 90 ML IVPB ONE (17:00)
[2022-07-27] MEDS: MONTELUKAST NA 10 MG TABLET PO SCH (22:56)
[2022-07-28] MEDS: SODIUM CHLORIDE 1,000 ML IV SCH ×2 (04:09→10:51)
[2022-07-28] MEDS: GABAPENTIN 300 MG CAPSULE PO SCH ×3 (06:53→21:21)
[2022-07-28] MEDS ORDERED: LEVOTHYROXINE NA 100 MCG TABLET (FP) ONE (06:55)
[2022-07-28] MEDS: LEVOTHYROXINE 100 MCG, LEVOTHYROXINE 75 MCG PO SCH (06:57)
[2022-07-28] MEDS: INSULIN SLIDING SCALE (NOVOLOG) 1 VIAL SQ SCH ×4 (07:08→21:22)
[2022-07-28 08:05] LABS: BASO % 1.1 % (0-2.0); EOS % 5.6 % (0-4.5); HEMATOCRIT 30.1 % (32.4-45.2); LYMPH % 20.6 % (8-40); MCH 25.9 pg (25.7-33.7); MCHC 33.2 g/dl (32.0-36.0); MEAN CELL VOLUME 78.1 fl (80-96); MEAN PLT VOLUME 7.6 fl (7.5-11.1); MONO % 7.6 % (3.8-10.2); NEUT % 65.1 % (42.8-82.8); PLATELET COUNT 294 10^3/uL (134-434); RBC 3.86 M/mm3 (3.60-5.2); WHITE BLOOD COUNT 5.5 K/mm3 (4.0-10.0)
[2022-07-28 08:14] LABS: ALBUMIN 2.4 g/dl (3.4-5.0); BLOOD UREA NITROGEN 5.9 mg/dL (7-18); CALCIUM 8.5 mg/dL (8.5-10.1)
[2022-07-28 08:17] LABS: CREATININE 0.6 mg/dL (0.55-1.3)
[2022-07-28 08:18] LABS: BILIRUBIN,TOTAL 0.4 mg/dL (0.2-1); TOT PROT 7.7 g/dl (6.4-8.2)
[2022-07-28] MEDS: AMINO ACIDS/PROTEIN HYDROLYS 30 ML LIQUID.PKT PO SCH (08:56)
[2022-07-28] MEDS: CEFTRIAXONE 2 GM in DEXTROSE 5%-WATER 100 ML IVPB SCH (09:04)
[2022-07-28] MEDS: PANTOPRAZOLE 40 MG TABLET PO SCH (09:05)
[2022-07-28] MEDS: HYDROCHLOROTHIAZIDE 25 MG TABLET (FP) PO SCH (09:05)
[2022-07-28] MEDS: LOSARTAN POTASSIUM 50 MG TABLET PO SCH (09:05)
[2022-07-28] MEDS: LACTOBACILLUS ACIDOPHILUS 1 TABLET PO SCH (09:05)
[2022-07-28] MEDS: ASCORBIC ACID 500 MG TABLET (FP) PO SCH (09:19)
[2022-07-28] MEDS ORDERED: POTASSIUM CHLORIDE TABS 20 MEQ TABLET.ER (FP) PO ONE (09:25)
[2022-07-28] MEDS: ACETAMINOPHEN 325 MG TABLET (FP) PO PRN (11:05)
[2022-07-28 15:24] VITALS: PULSE 63; RESP 20
[2022-07-28] MEDS: DAPTOMYCIN 350 MG in SODIUM CHLORIDE 50 ML IVPB SCH (17:33)
[2022-07-28] MEDS ORDERED: INSULIN (NOVOLOG) ASPART 100 UNITS/ML 10ML VIAL ONE (20:45)
[2022-07-28] MEDS: MONTELUKAST NA 10 MG TABLET PO SCH (21:22)
[2022-07-29] MEDS: GABAPENTIN 300 MG CAPSULE PO SCH ×2 (06:21→13:54)
[2022-07-29] MEDS ORDERED: INSULIN (NOVOLOG) ASPART 100 UNITS/ML 10ML VIAL ONE ×3 (07:00→12:14)
[2022-07-29] MEDS: LEVOTHYROXINE 100 MCG, LEVOTHYROXINE 75 MCG PO SCH (07:22)
[2022-07-29] MEDS: INSULIN SLIDING SCALE (NOVOLOG) 1 VIAL SQ SCH ×3 (07:22→17:53)
[2022-07-29] MEDS: LACTOBACILLUS ACIDOPHILUS 1 TABLET PO SCH (09:17)
[2022-07-29] MEDS: HYDROCHLOROTHIAZIDE 25 MG TABLET (FP) PO SCH (09:17)
[2022-07-29] MEDS: PANTOPRAZOLE 40 MG TABLET PO SCH (09:17)
[2022-07-29] MEDS: LOSARTAN POTASSIUM 50 MG TABLET PO SCH (09:17)
[2022-07-29] MEDS: AMINO ACIDS/PROTEIN HYDROLYS 30 ML LIQUID.PKT PO SCH (09:17)
[2022-07-29] MEDS: ASCORBIC ACID 500 MG TABLET (FP) PO SCH (09:18)
[2022-07-29] MEDS: CEFTRIAXONE 2 GM in DEXTROSE 5%-WATER 100 ML IVPB SCH (09:33)
[2022-07-29 10:06] LABS: BASO % 1.6 % (0-2.0); EOS % 6.1 % (0-4.5); HEMATOCRIT 31.7 % (32.4-45.2); HEMOGLOBIN 10.5 GM/dL (10.7-15.3); MCH 25.7 pg (25.7-33.7); MCHC 33.2 g/dl (32.0-36.0); MEAN CELL VOLUME 77.5 fl (80-96); MEAN PLT VOLUME 7.5 fl (7.5-11.1); MONO % 6.3 % (3.8-10.2); PLATELET COUNT 348 10^3/uL (134-434); RBC 4.09 M/mm3 (3.60-5.2); WHITE BLOOD COUNT 5.4 K/mm3 (4.0-10.0)
[2022-07-29 10:29] LABS: CALCIUM 8.7 mg/dL (8.5-10.1)
[2022-07-29 10:30] LABS: ALBUMIN 2.5 g/dl (3.4-5.0); BLOOD UREA NITROGEN 3.5 mg/dL (7-18)
[2022-07-29 10:33] LABS: CREATININE 0.6 mg/dL (0.55-1.3)
[2022-07-29 10:35] LABS: BILIRUBIN,TOTAL 0.3 mg/dL (0.2-1); TOT PROT 7.9 g/dl (6.4-8.2)
[2022-07-29] MEDS ORDERED: POTASSIUM CHLORIDE TABS 20 MEQ TABLET.ER (FP) PO ONE (12:00)
[2022-07-29] MEDS ORDERED: COLLAGENASE CLOSTRIDIUM HIST. 30 GRAMS TUBE TP SCH (12:45)
[2022-07-29 16:17] VITALS: BP 185/77; TEMP 97.8
[2022-07-29] MEDS: DAPTOMYCIN 350 MG in SODIUM CHLORIDE 50 ML IVPB SCH (16:26)
[2022-07-29] MEDS: ACETAMINOPHEN 325 MG TABLET (FP) PO PRN (19:07)
== END 2022-07-29 19:48 | disposition home health service (06) ==
LOC: JER 22:49 → JERBED 23:57 → UNDOADMIN 23:57 → JASUSAT 07-25 14:55 → J8W 07-25 15:13 → JERBED 07-25 15:13 → J8W 07-25 17:40 → JASUSAT 07-29 19:48
PROVIDERS: ATTEND Family Medicine
PROC: 0JBQ0ZZ Excision of Right Foot Subcutaneous Tissue and Fascia, Open Approach (ICD-10-PCS; 2022-07-25)
PROC: 047K3Z1 Dilation of Right Femoral Artery using Drug-Coated Balloon, Percutaneous Approach (ICD-10-PCS; principal; 2022-07-25 12:00)
DX: L89.613 Pressure ulcer of right heel, stage 3 (principal); M86.8X7 Other osteomyelitis, ankle and foot; E11.40 Type 2 diabetes mellitus with diabetic neuropathy, unspecified; E03.9 Hypothyroidism, unspecified; I10 Essential (primary) hypertension; E78.5 Hyperlipidemia, unspecified; Z95.0 Presence of cardiac pacemaker; Z79.84 Long term (current) use of oral hypoglycemic drugs; Z88.0 Allergy status to penicillin
CPT/HCPCS: 11042; 37225; C2623; 36415; 76000-TC-FY; 80053; 82728; 82962; 83540; 83550; 83735; 84100; 84443; 85025; 85610; 85651; 85730; 86140; 86850; 86900; 86901; 93005; 93010; 94010; 94760; 99285-25; C1760; C1769; C9803-CS; J0878; J1644; J1756; U0003; U0005

== ENCOUNTER 2023-02-20 04:59 | Day surgery (SDC) | payer OTHER ==
[2023-02-19 09:41] VITALS: BMI 30.1
[2023-02-20] MEDS ORDERED: HEPARIN NA (PORCINE) 5,000 UNITS/ML 1ML VIAL ONE (08:45)
[2023-02-20] MEDS ORDERED: MIDAZOLAM HCL 2 MG/2 ML SINGLE DOSE VIAL ONE (13:36)
[2023-02-20] MEDS ORDERED: FENTANYL CITRATE/PF 50 MCG/ML VIAL ONE ×3 (13:36→15:02)
[2023-02-20] MEDS ORDERED: PROPOFOL 20 ML ONE (13:36)
[2023-02-20] MEDS ORDERED: HEPARIN NA (PORCINE) 5,000 UNITS/ML 1ML VIAL SQ ONE (13:50)
[2023-02-20] MEDS ORDERED: IOHEXOL 300 MG/ML INFUS..BTL IV ONE (13:50)
[2023-02-20] MEDS ORDERED: LIDOCAINE HCL 1%, 10 MG/ML (20ML VIAL) INF ONE ×2 (13:50)
[2023-02-20] MEDS ORDERED: KETOROLAC TROMETHAMINE 30 MG/1 ML VIAL ONE ×2 (13:54)
[2023-02-20] MEDS ORDERED: ceFAZolin SODIUM 1 GM VIAL ONE ×2 (13:54)
[2023-02-20] MEDS ORDERED: ONDANSETRON 4 MG/2 ML VIAL IVPUSH PRN (14:37)
[2023-02-20] MEDS ORDERED: oxyCODONE HCL 5 MG TABLET PO PRN (14:37)
[2023-02-20] MEDS ORDERED: LACTATED RINGERS SOLUTION 1,000 ML IV SCH (14:45)
[2023-02-20 16:33] VITALS: RESP 20; TEMP 97.9
[2023-02-20 16:40] VITALS: BP 138/75; PULSE 67
== END 2023-02-20 17:50 | disposition home or self-care (01) ==
LOC: JASU-SURG 04:59
PROVIDERS: ATTEND Surgery Vascular Surgery
PROC: B41DY10 Fluoroscopy of Aorta and Bilateral Lower Extremity Arteries using Other Contrast, Laser Intraoperative (ICD-10-PCS; principal; 2023-02-20 12:30)
DX: E11.621 Type 2 diabetes mellitus with foot ulcer (principal); L97.519 Non-pressure chronic ulcer of other part of right foot with unspecified severity
CPT/HCPCS: 76000-TC-FY; 94760; C1769; J1644

== ENCOUNTER 2023-05-23 04:19 | Day surgery (SDC) | payer OTHER ==
[2023-05-15 14:37] VITALS: BMI 30.1
[2023-05-23] MEDS ORDERED: GABAPENTIN 300 MG CAPSULE ONE (07:31)
[2023-05-23] MEDS: GABAPENTIN 300 MG CAPSULE PO ONE (07:35)
[2023-05-23] MEDS: ceFAZolin SODIUM 1 GM VIAL IVPB ONE (09:43)
[2023-05-23] MEDS: LIDOCAINE 1%/EPI 1:100000 (20 ML MULTI DOSE VIAL) IJ ONE (10:01)
[2023-05-23] MEDS: BUPIVACAINE HCL/PF 0.5% (5 MG/ML) 30 ML VIAL IJ ONE (10:01)
[2023-05-23] MEDS ORDERED: ONDANSETRON 4 MG/2 ML VIAL IVPUSH PRN (11:21)
[2023-05-23] MEDS: LACTATED RINGERS SOLUTION 1,000 ML IV SCH (13:30)
[2023-05-23 14:54] VITALS: TEMP 97.2
[2023-05-23] MEDS: oxyCODONE HCL 5 MG TABLET PO PRN (15:48)
[2023-05-23] MEDS ORDERED: oxyCODONE HCL 5 MG TABLET ONE ×2 (15:49→15:54)
[2023-05-23] MEDS: oxyCODONE HCL 5 MG TABLET PO ONE (15:58)
[2023-05-23 17:19] VITALS: BP 128/68; PULSE 62; RESP 20
== END 2023-05-23 17:15 | disposition home or self-care (01) ==
LOC: JASU-SURG 04:19
PROVIDERS: ATTEND Podiatrist Foot Surgery
PROC: 0HRNXK3 Replacement of Left Foot Skin with Nonautologous Tissue Substitute, Full Thickness, External Approach (ICD-10-PCS; 2023-05-23)
PROC: 0JBQ0ZZ Excision of Right Foot Subcutaneous Tissue and Fascia, Open Approach (ICD-10-PCS; principal; 2023-05-23 09:30)
DX: E11.621 Type 2 diabetes mellitus with foot ulcer (principal); L97.329 Non-pressure chronic ulcer of left ankle with unspecified severity; L97.529 Non-pressure chronic ulcer of other part of left foot with unspecified severity; Z79.84 Long term (current) use of oral hypoglycemic drugs
CPT/HCPCS: 11042; 15004; 15275; 97610; Q4121; 82962; 94760

== ENCOUNTER 2024-01-29 15:03 | Inpatient (IN) | payer OTHER ==
[2024-01-29 15:10] VITALS: BMI 30.1
[2024-01-29] MEDS ORDERED: VANCOMYCIN HCL 1,500 MG in DEXTROSE 5%-WATER - 500 ML IVPB ONE (16:28)
[2024-01-29 16:55] LABS: BASO % 0.8 % (0-2.0); EOS % 1.2 % (0-4.5); HEMATOCRIT 36.6 % (32.4-45.2); MCHC 32.7 g/dl (32.0-36.0); MEAN CELL VOLUME 79.7 fl (80-96); MEAN PLT VOLUME 7.5 fl (7.5-11.1); MONO % 4.9 % (3.8-10.2); NEUT % 73.1 % (42.8-82.8); PLATELET COUNT 322 10^3/uL (134-434); RDW 18.6 % (11.6-15.6)
[2024-01-29 17:15] LABS: POTASSIUM 5.6 mmol/L (3.5-5.1)
[2024-01-29 17:18] LABS: ALBUMIN 2.7 g/dl (3.4-5.0)
[2024-01-29 17:19] LABS: BLOOD UREA NITROGEN 23.6 mg/dL (7-18); INR 1.08 (0.83-1.09); PROTHROMBIN TIME (PATIENT) 12.2 SEC (9.7-13.0)
[2024-01-29 17:22] LABS: ACTIVATED PTT 28.1 SECONDS (25.2-36.5); CREATININE 0.8 mg/dL (0.55-1.3)
[2024-01-29 17:23] LABS: BILIRUBIN,TOTAL 0.4 mg/dL (0.2-1); TOT PROT 7.9 g/dl (6.4-8.2)
[2024-01-29] MEDS ORDERED: PIPERACILLIN/TAZOB 4.5 GM 4.5 GM/100 ML BAG IVPB ONE (17:24)
[2024-01-29] MEDS: PIPERACILLIN/TAZOB 4.5 GM 4.5 GM in DEXTROSE 5%-WATER 100 ML IVPB ONE (17:45)
[2024-01-29] MEDS: VANCOMYCIN PREMIX 1.5 GM 1,500 MG/300 ML BAG IVPB ONE (18:07)
[2024-01-29] MEDS ORDERED: ACETAMINOPHEN 325 MG TABLET (FP) ONE (18:51)
[2024-01-29] MEDS: ACETAMINOPHEN 325 MG TABLET (FP) PO ONE (18:53)
[2024-01-29] MEDS ORDERED: FAMOTIDINE 20 MG/50 ML IVPB 20 MG/50 ML MG IVPB ONE (19:29)
[2024-01-29] MEDS: FAMOTIDINE 20 MG/50 ML IVPB 20 MG/50 ML MG IVPB ONE (19:30)
[2024-01-29 21:57] LABS: POTASSIUM 4.7 mmol/L (3.5-5.1)
[2024-01-29 21:59] LABS: BLOOD UREA NITROGEN 23.1 mg/dL (7-18)
[2024-01-29 22:02] LABS: CREATININE 0.8 mg/dL (0.55-1.3)
[2024-01-29 22:21] LABS: CALCIUM 9.1 mg/dL (8.5-10.1)
[2024-01-30] MEDS: ACETAMINOPHEN 325 MG TABLET (FP) PO PRN (04:06)
[2024-01-30] MEDS ORDERED: ALBUTEROL SO4 HFA INHALER IH PRN (05:08)
[2024-01-30] MEDS: LEVOTHYROXINE 50 MCG, LEVOTHYROXINE 125 MCG PO SCH (06:27)
[2024-01-30] MEDS ORDERED: LEVOTHYROXINE NA 100 MCG TABLET (FP) PO SCH (07:00)
[2024-01-30] MEDS: GABAPENTIN 300 MG CAPSULE PO SCH (09:45)
[2024-01-30] MEDS: ASPIRIN 81 MG CHEWABLE TABLETS PO SCH (09:46)
[2024-01-30 10:43] LABS: BASO % 0.4 % (0-2.0); EOS % 1.6 % (0-4.5); HEMATOCRIT 40.4 % (32.4-45.2); HEMOGLOBIN 12.6 GM/dL (10.7-15.3); LYMPH % 22.5 % (8-40); MCH 25.6 pg (25.7-33.7); MCHC 31.2 g/dl (32.0-36.0); MEAN CELL VOLUME 82.1 fl (80-96); MEAN PLT VOLUME 7.4 fl (7.5-11.1); MONO % 4.6 % (3.8-10.2); NEUT % 70.9 % (42.8-82.8); PLATELET COUNT 315 10^3/uL (134-434); RBC 4.93 M/mm3 (3.60-5.2); RDW 18.8 % (11.6-15.6); WHITE BLOOD COUNT 8.1 K/mm3 (4.0-10.0)
[2024-01-30 11:06] LABS: POTASSIUM 4.7 mmol/L (3.5-5.1)
[2024-01-30 11:14] LABS: CALCIUM 9.1 mg/dL (8.5-10.1)
[2024-01-30 11:15] LABS: BLOOD UREA NITROGEN 19.6 mg/dL (7-18)
[2024-01-30 11:18] LABS: CREATININE 0.7 mg/dL (0.55-1.3)
[2024-01-30] MEDS ORDERED: PIPERACILLIN/TAZOB 4.5 GM 4.5 GM in DEXTROSE 5%-WATER 100 ML IVPB SCH (13:15)
[2024-01-30] MEDS ORDERED: DOCUSATE SODIUM 100 MG CAPSULE (FP) PO PRN (13:46)
[2024-01-30] MEDS: MEROPENEM 1 GM in DEXTROSE 5%-WATER 100 ML IVPB SCH (15:04)
[2024-01-30] MEDS: oxyCODONE HCL 5 MG TABLET PO PRN (16:50)
[2024-01-30] MEDS: BETAMETHASONE DIPR 0.05% CREAM 15 GM TUBE TP SCH (16:52)
[2024-01-30] MEDS: MONTELUKAST NA 10 MG TABLET PO SCH (22:02)
[2024-01-30] MEDS: oxyCODONE HCL 5 MG TABLET PO SCH (22:03)
[2024-01-30] MEDS: ACETAMINOPHEN 325 MG TABLET (FP) PO SCH (23:19)
[2024-01-31] MEDS ORDERED: methaDONE HCL 10 MG TABLET PO SCH (13:30)
[2024-01-31] MEDS: methaDONE 80 MG, methaDONE 10 MG PO SCH (15:34)
[2024-01-31] MEDS: ENOXAPARIN NA (PORCINE) 40 MG/0.4 ML DISP.SYRIN SQ SCH (15:37)
[2024-02-01] MEDS: LACTOBACILLUS ACIDOPHILUS 1 TABLET PO SCH (17:43)
[2024-02-01] MEDS: VANCOMYCIN ORAL SOLUTION 125 MG/2.5 ML PO SCH (17:43)
[2024-02-02] MEDS: SIMETHICONE 80 MG TAB.CHEW (FP) PO ONE (20:42)
[2024-02-03 09:15] LABS: HEMOGLOBIN 13.1 GM/dL (10.7-15.3); MCH 26.2 pg (25.7-33.7); MCHC 32.8 g/dl (32.0-36.0); MEAN PLT VOLUME 7.3 fl (7.5-11.1); PLATELET COUNT 407 10^3/uL (134-434); RBC 5.01 M/mm3 (3.60-5.2); RDW 18.8 % (11.6-15.6); WHITE BLOOD COUNT 9.2 K/mm3 (4.0-10.0)
[2024-02-03 09:48] LABS: POTASSIUM 4.6 mmol/L (3.5-5.1)
[2024-02-03 10:04] LABS: CREATININE 0.7 mg/dL (0.55-1.3)
[2024-02-03 10:05] LABS: BILIRUBIN,TOTAL 0.4 mg/dL (0.2-1); CALCIUM 9.9 mg/dL (8.5-10.1); TOT PROT 8.7 g/dl (6.4-8.2)
[2024-02-03 10:07] LABS: ALBUMIN 3.3 g/dl (3.4-5.0)
[2024-02-03] MEDS ORDERED: LIDOCAINE 1%/EPI 1:100000 (20 ML MULTI DOSE VIAL) ONE (16:16)
[2024-02-03] MEDS ORDERED: LIDOCAINE HCL/PF 2% SDV 5ML VIAL ONE (16:37)
[2024-02-03] MEDS ORDERED: MIDAZOLAM HCL 2 MG/2 ML SINGLE DOSE VIAL ONE (16:37)
[2024-02-03] MEDS ORDERED: PROPOFOL 20 ML ONE (16:37)
[2024-02-03] MEDS: MAG HYDROX/AL HYDROX/SIMETH 30 ML UNIT-DOSE CUP PO ONE (18:16)
[2024-02-03] MEDS: MAG HYDROX/AL HYDROX/SIMETH 30 ML UNIT-DOSE CUP PO PRN (23:11)
[2024-02-04] MEDS: VANCOMYCIN ORAL SOLUTION 125 MG/2.5 ML PO SCH ×2 (11:00→23:24)
[2024-02-04] MEDS ORDERED: LIDOCAINE 1%/EPI 1:100000 (20 ML MULTI DOSE VIAL) ONE (12:32)
[2024-02-04] MEDS ORDERED: LIDOCAINE HCL/PF 2% SDV 5ML VIAL ONE (13:17)
[2024-02-04] MEDS ORDERED: PROPOFOL 40 ML ONE (13:18)
[2024-02-04] MEDS ORDERED: MIDAZOLAM HCL 2 MG/2 ML SINGLE DOSE VIAL ONE (13:18)
[2024-02-04] MEDS ORDERED: SUCCINYLCHOLINE CHLORIDE 200 MG/10 ML SYRINGE ONE (13:24)
[2024-02-04] MEDS ORDERED: methylPREDNISolone ACET (DEPO) 80 MG/1 ML VIAL ONE (14:09)
[2024-02-04] MEDS ORDERED: BENZOIN/ALOE VERA/STORAX/TOLU 58 ML BOTTLE ONE (16:04)
[2024-02-04] MEDS ORDERED: ROCURONIUM BROMIDE 50 MG/5 ML SYRINGE ONE (16:32)
[2024-02-04] MEDS ORDERED: ONDANSETRON 4 MG/2 ML VIAL IVPUSH PRN ×2 (16:50→19:30)
[2024-02-04] MEDS ORDERED: LACTATED RINGERS SOLUTION 1,000 ML IV SCH (17:00)
[2024-02-04] MEDS ORDERED: HYDROmorphone HCL CARPU-JECT 2 MG/1 ML DISP.SYRIN ONE (17:02)
[2024-02-04] MEDS: HYDROmorphone HCl 2 MG/ML VIAL IVPUSH PRN (17:09)
[2024-02-04] MEDS ORDERED: HYDROmorphone *PCA* 10MG/50ML DISP.SYRIN ONE (17:59)
[2024-02-04] MEDS: HYDROmorphone *PCA* 10MG/50ML DISP.SYRIN PCA SCH (18:01)
[2024-02-04] MEDS ORDERED: BACITRACIN ZINC 15 GM TUBE TOPICAL OINTMENT ONE (18:49)
[2024-02-04] MEDS: MUPIROCIN CA 2% TOPICAL CREAM 15 GM TUBE TP SCH ×2 (18:57→21:58)
[2024-02-04] MEDS ORDERED: ALBUTEROL SO4 HFA INHALER IH PRN (19:30)
[2024-02-04] MEDS ORDERED: DOCUSATE SODIUM 100 MG CAPSULE (FP) PO PRN (19:30)
[2024-02-04] MEDS ORDERED: MAG HYDROX/AL HYDROX/SIMETH 30 ML UNIT-DOSE CUP PO PRN (19:30)
[2024-02-04] MEDS: LACTATED RINGERS SOLUTION 1,000 ML IV SCH (19:45)
[2024-02-04] MEDS: ACETAMINOPHEN 325 MG TABLET (FP) PO SCH (22:04)
[2024-02-04] MEDS: MONTELUKAST NA 10 MG TABLET PO SCH (22:04)
[2024-02-04] MEDS: GABAPENTIN 300 MG CAPSULE PO SCH (22:04)
[2024-02-05] MEDS: MEROPENEM 1 GM in DEXTROSE 5%-WATER 100 ML IVPB SCH (01:14)
[2024-02-05] MEDS: LEVOTHYROXINE 50 MCG, LEVOTHYROXINE 125 MCG PO SCH (06:03)
[2024-02-05] MEDS: methaDONE 80 MG, methaDONE 10 MG PO SCH (06:03)
[2024-02-05 09:26] LABS: POTASSIUM 4.6 mmol/L (3.5-5.1)
[2024-02-05 09:36] LABS: HEMATOCRIT 32.7 % (32.4-45.2); HEMOGLOBIN 10.4 GM/dL (10.7-15.3); MCHC 31.7 g/dl (32.0-36.0); MEAN CELL VOLUME 82.1 fl (80-96); MEAN PLT VOLUME 7.6 fl (7.5-11.1); PLATELET COUNT 296 10^3/uL (134-434); RBC 3.99 M/mm3 (3.60-5.2); RDW 18.5 % (11.6-15.6); WHITE BLOOD COUNT 9.1 K/mm3 (4.0-10.0)
[2024-02-05] MEDS: LACTOBACILLUS ACIDOPHILUS 1 TABLET PO SCH (09:42)
[2024-02-05] MEDS: HYDROCHLOROTHIAZIDE 25 MG TABLET (FP) PO SCH (09:42)
[2024-02-05] MEDS: ASPIRIN 81 MG CHEWABLE TABLETS PO SCH (09:42)
[2024-02-05] MEDS: ACETAMINOPHEN 325 MG TABLET (FP) PO PRN (09:43)
[2024-02-05 10:07] LABS: BLOOD UREA NITROGEN 11.7 mg/dL (7-18); CALCIUM 9.1 mg/dL (8.5-10.1)
[2024-02-05 10:09] LABS: ALBUMIN 2.6 g/dl (3.4-5.0); BILIRUBIN,TOTAL 0.3 mg/dL (0.2-1)
[2024-02-05 10:11] LABS: CREATININE 0.7 mg/dL (0.55-1.3)
[2024-02-05] MEDS: ENOXAPARIN NA (PORCINE) 40 MG/0.4 ML DISP.SYRIN SQ SCH (10:45)
[2024-02-06] MEDS: SIMETHICONE 80 MG TAB.CHEW (FP) PO PRN (10:02)
[2024-02-06] MEDS: MEROPENEM 1 GM PUSH 1 GM/20 ML DISP.SYRIN IVPUSH SCH (17:11)
[2024-02-08] MEDS: LOPERAMIDE HCL 2 MG CAPSULE PO ONE ×2 (18:57→20:09)
[2024-02-09] MEDS: BANATROL PLUS POWDER PACKET PO SCH (10:18)
[2024-02-10 09:03] LABS: HEMATOCRIT 38.6 % (32.4-45.2); HEMOGLOBIN 12.3 GM/dL (10.7-15.3); MCH 26.3 pg (25.7-33.7); MCHC 31.9 g/dl (32.0-36.0); MEAN CELL VOLUME 82.4 fl (80-96); MEAN PLT VOLUME 7.7 fl (7.5-11.1); PLATELET COUNT 347 10^3/uL (134-434); RBC 4.69 M/mm3 (3.60-5.2); RDW 18.9 % (11.6-15.6); WHITE BLOOD COUNT 7.5 K/mm3 (4.0-10.0)
[2024-02-10 09:21] LABS: POTASSIUM 4.1 mmol/L (3.5-5.1)
[2024-02-10 09:27] LABS: CALCIUM 9.5 mg/dL (8.5-10.1)
[2024-02-10 09:28] LABS: ALBUMIN 2.8 g/dl (3.4-5.0); BLOOD UREA NITROGEN 18.8 mg/dL (7-18)
[2024-02-10 09:31] LABS: CREATININE 0.7 mg/dL (0.55-1.3)
[2024-02-10 09:33] LABS: BILIRUBIN,TOTAL 0.3 mg/dL (0.2-1); TOT PROT 7.6 g/dl (6.4-8.2)
[2024-02-10] MEDS: FAMOTIDINE 10 MG TABLET PO SCH (10:33)
[2024-02-10 16:38] VITALS: RESP 18
[2024-02-10] MEDS: DOXYCYCLINE HYCLATE 100 MG CAPSULE PO SCH (17:46)
[2024-02-11] MEDS: KETOROLAC TROMETHAMINE 30 MG/1 ML VIAL IVPUSH ONE (01:21)
[2024-02-11] MEDS: KETOROLAC TROMETHAMINE 30 MG/1 ML VIAL IVPUSH PRN (09:30)
[2024-02-11 15:32] VITALS: BP 126/61; PULSE 64; TEMP 98.2
== END 2024-02-11 16:30 | disposition home health service (06) | DRG 571 ==
LOC: JER 15:03 → JERBED 20:36 → J8W 21:52
PROVIDERS: ADMIT Internal Medicine; ATTEND Family Medicine
PROC: 0JXL0ZZ Transfer Right Upper Leg Subcutaneous Tissue and Fascia, Open Approach (ICD-10-PCS; 2024-02-04)
PROC: 0J8Q0ZZ Division of Right Foot Subcutaneous Tissue and Fascia, Open Approach (ICD-10-PCS; 2024-02-04)
PROC: 0LNV0ZZ Release Right Foot Tendon, Open Approach (ICD-10-PCS; 2024-02-04)
PROC: 0JBL0ZZ Excision of Right Upper Leg Subcutaneous Tissue and Fascia, Open Approach (ICD-10-PCS; principal; 2024-02-04 14:18)
DX: L88 Pyoderma gangrenosum (principal); F11.20 Opioid dependence, uncomplicated; L97.319 Non-pressure chronic ulcer of right ankle with unspecified severity; E11.51 Type 2 diabetes mellitus with diabetic peripheral angiopathy without gangrene; E11.621 Type 2 diabetes mellitus with foot ulcer; I83.013 Varicose veins of right lower extremity with ulcer of ankle; E03.9 Hypothyroidism, unspecified; R19.7 Diarrhea, unspecified; E78.5 Hyperlipidemia, unspecified
CPT/HCPCS: 36415; 80048; 80053; 83036; 84439; 84443; 84481; 85025; 85027; 85610; 85730; 86140; 87040; 87045; 87046; 88304-TC; 93005; 93010; 94760; 97116-GP; 97161-GP; 99285-25; G0463-25

== ENCOUNTER 2024-04-29 12:01 | Inpatient (IN) | payer OTHER ==
[2024-04-29 12:11] VITALS: BMI 30.1
[2024-04-29] MEDS ORDERED: ACETAMINOPHEN INJECTION 100 ML ONE (13:51)
[2024-04-29 13:54] LABS: BASO % 0.6 % (0-2.0); EOS % 1.8 % (0-4.5); HEMATOCRIT 38.2 % (32.4-45.2); LYMPH % 14.8 % (8-40); MCH 26.1 pg (25.7-33.7); MCHC 31.4 g/dl (32.0-36.0); MEAN CELL VOLUME 83.2 fl (80-96); MEAN PLT VOLUME 7.3 fl (7.5-11.1); MONO % 4.9 % (3.8-10.2); NEUT % 77.9 % (42.8-82.8); PLATELET COUNT 326 10^3/uL (134-434); RBC 4.59 M/mm3 (3.60-5.2); RDW 16.9 % (11.6-15.6); WHITE BLOOD COUNT 11.6 K/mm3 (4.0-10.0)
[2024-04-29] MEDS: ACETAMINOPHEN 1000 MG/100 ML BAG IVPB ONE (13:56)
[2024-04-29 14:02] LABS: INR 1.12 (0.83-1.09); PROTHROMBIN TIME (PATIENT) 12.8 SEC (9.7-13.0)
[2024-04-29 14:05] LABS: ACTIVATED PTT 30.3 SECONDS (25.2-36.5)
[2024-04-29 14:15] LABS: POTASSIUM 3.7 mmol/L (3.5-5.1)
[2024-04-29 14:16] LABS: CALCIUM 8.7 mg/dL (8.5-10.1)
[2024-04-29 14:17] LABS: ALBUMIN 2.8 g/dl (3.4-5.0); BLOOD UREA NITROGEN 13.4 mg/dL (7-18)
[2024-04-29 14:20] LABS: CREATININE 0.7 mg/dL (0.55-1.3)
[2024-04-29 14:22] LABS: BILIRUBIN,TOTAL 0.3 mg/dL (0.2-1)
[2024-04-29] MEDS ORDERED: ALBUTEROL SO4 HFA INHALER IH PRN (16:06)
[2024-04-29] MEDS ORDERED: VANCOMYCIN 1 GM PREMIX (F) 1 GM/200 ML BAG ONE (17:34)
[2024-04-29] MEDS: VANCOMYCIN 1,000 MG in DEXTROSE 5%-WATER - 250 ML IVPB ONE (17:49)
[2024-04-29] MEDS ORDERED: fentaNYL CITRATE 250 MCG/5 ML VIAL ONE (18:39)
[2024-04-29] MEDS: traZODone HCL 100 MG TABLET (FP) PO SCH (21:03)
[2024-04-29] MEDS: GABAPENTIN 300 MG CAPSULE PO SCH (21:03)
[2024-04-29] MEDS: MUPIROCIN CA 2% TOPICAL CREAM 15 GM TUBE TP SCH (21:06)
[2024-04-29] MEDS: MYCOPHENOLATE MOFETIL 500 MG TABLET PO SCH (22:00)
[2024-04-29] MEDS: D5-1/2NS+20 MEQ KCL - 20 MEQ/1,000 ML INFUS.BAG IV SCH (22:36)
[2024-04-29 23:50] LABS: COCAINE, UR NEGATIVE (NEGATIVE); PHENCYCLIDINE,URINE NEGATIVE (NEGATIVE); URINE AMPHETAMINES NEGATIVE (NEGATIVE); URINE BENZODIAZEPINES NEGATIVE (NEGATIVE)
[2024-04-29 23:53] LABS: METHADONE, UR POSITIVE (NEGATIVE); OPIATES, URI POSITIVE (NEGATIVE); URINE BARBITURATES NEGATIVE (NEGATIVE)
[2024-04-30] MEDS: LEVOTHYROXINE 75 MCG, LEVOTHYROXINE 100 MCG PO SCH (06:13)
[2024-04-30] MEDS ORDERED: LEVOTHYROXINE NA 100 MCG TABLET (FP) PO SCH (07:00)
[2024-04-30] MEDS: HYDROCHLOROTHIAZIDE 25 MG TABLET (FP) PO SCH (10:37)
[2024-04-30] MEDS: FAMOTIDINE 20 MG TABLET PO SCH (10:37)
[2024-04-30] MEDS: LOSARTAN POTASSIUM 50 MG TABLET PO SCH (10:37)
[2024-04-30 11:29] LABS: BASO % 0.3 % (0-2.0); EOS % 2.9 % (0-4.5); HEMATOCRIT 37.7 % (32.4-45.2); HEMOGLOBIN 12.4 GM/dL (10.7-15.3); LYMPH % 16.6 % (8-40); MCHC 32.7 g/dl (32.0-36.0); MEAN CELL VOLUME 82.3 fl (80-96); MEAN PLT VOLUME 7.3 fl (7.5-11.1); MONO % 4.8 % (3.8-10.2); NEUT % 75.4 % (42.8-82.8); PLATELET COUNT 310 10^3/uL (134-434); RBC 4.58 M/mm3 (3.60-5.2); RDW 17.2 % (11.6-15.6); WHITE BLOOD COUNT 6.8 K/mm3 (4.0-10.0)
[2024-04-30 11:33] LABS: INR 1.23 (0.83-1.09); PROTHROMBIN TIME (PATIENT) 13.8 SEC (9.7-13.0)
[2024-04-30 11:36] LABS: ACTIVATED PTT 31.3 SECONDS (25.2-36.5)
[2024-04-30 11:45] LABS: POTASSIUM 4.3 mmol/L (3.5-5.1)
[2024-04-30 11:54] LABS: CALCIUM 8.9 mg/dL (8.5-10.1)
[2024-04-30 11:55] LABS: ALBUMIN 2.7 g/dl (3.4-5.0); BLOOD UREA NITROGEN 9.9 mg/dL (7-18); MAGNESIUM 1.9 mg/dL (1.8-2.4)
[2024-04-30 11:58] LABS: CREATININE 0.6 mg/dL (0.55-1.3)
[2024-04-30 11:59] LABS: BILIRUBIN,TOTAL 0.6 mg/dL (0.2-1); TOT PROT 7.9 g/dl (6.4-8.2)
[2024-04-30] MEDS: traMADol HCL 50 MG TABLET PO PRN (13:58)
[2024-04-30] MEDS: MEROPENEM 1 GM in DEXTROSE 5%-WATER 100 ML IVPB SCH (14:25)
[2024-04-30] MEDS: LIDOCAINE HCL 5% TOP OINTMENT 50 GM TUBE TP SCH (14:41)
[2024-04-30] MEDS: MEROPENEM-0.9% SODIUM CHLORIDE 1 GM/50 ML BAG IVPB SCH (17:02)
[2024-04-30] MEDS: ROSUVASTATIN CA 20 MG TABLET PO SCH (21:11)
[2024-05-01] MEDS: ALBUTEROL SO4 2.5/IPRATROPIUM 0.5 INH SOL 3 ML VIAL.NEB. NEB SCH (14:05)
[2024-05-02] MEDS: ENOXAPARIN NA (PORCINE) 40 MG/0.4 ML DISP.SYRIN SQ SCH (09:11)
[2024-05-02 18:47] LABS: URINE APPEARANCE CLOUDY; URINE BILIRUBIN NEGATIVE (NEGATIVE); URINE COLOR YELLOW; URINE GLUCOSE (UA) NEGATIVE (NEGATIVE)
[2024-05-02 18:48] LABS: URINE KETONE NEGATIVE (NEGATIVE); URINE LEUK ESTERASE TRACE (NEGATIVE); URINE NITRITE NEGATIVE (NEGATIVE); URINE PROTEIN 30 (NEGATIVE)
[2024-05-02 19:05] LABS: EPI CELLS 100.2 /uL (0-25.1); URINE RBC 52.5 /uL (0-23.9); URINE WBC 49.6 /uL (0-25.8)
[2024-05-02 19:06] LABS: URINE BACTERIA 9.4 /uL (0-1359)
[2024-05-04] MEDS: ACETAMINOPHEN 1000 MG/100 ML BAG IVPB ONE (04:25)
[2024-05-04] MEDS ORDERED: LIDOCAINE 1%/EPI 1:100000 (20 ML MULTI DOSE VIAL) ONE (07:09)
[2024-05-04] MEDS ORDERED: BUPIVACAINE HCL/PF 0.5% (5MG/ML) 10 ML VIAL ONE (07:09)
[2024-05-04] MEDS ORDERED: VANCOMYCIN 1,000 MG VIAL (RESTRICTED TO ID ONLY) ONE (07:15)
[2024-05-04] MEDS ORDERED: GENTAMICIN SO4 80 MG/2 ML VIAL ONE (07:15)
[2024-05-04] MEDS ORDERED: oxyCODONE HCL 5 MG TABLET PO PRN ×2 (07:38)
[2024-05-04] MEDS ORDERED: ONDANSETRON 4 MG/2 ML VIAL IVPUSH PRN ×2 (07:38→13:10)
[2024-05-04] MEDS ORDERED: PROPOFOL 20 ML ONE (07:54)
[2024-05-04] MEDS ORDERED: MIDAZOLAM HCL 2 MG/2 ML SINGLE DOSE VIAL ONE (07:55)
[2024-05-04] MEDS ORDERED: SEVOFLURANE 250 ML BTL ONE (07:57)
[2024-05-04] MEDS ORDERED: ONDANSETRON 4 MG/2 ML VIAL ONE (08:15)
[2024-05-04] MEDS ORDERED: DEXAMETHASONE SOD PHOSPHATE 4 MG/1 ML VIAL ONE (08:15)
[2024-05-04] MEDS ORDERED: VASopressin 20 UNITS/ML VIAL IV ONE (08:31)
[2024-05-04] MEDS ORDERED: BUPIVACAINE HCL/PF 0.25% (2.5MG/ML) 10 ML VIAL ONE (08:31)
[2024-05-04] MEDS: MEROPENEM 1 GM VIAL (RESTRICTED TO ID) IVPB ONE (08:43)
[2024-05-04] MEDS: LIDOCAINE 1%/EPI 1:100000 (20 ML MULTI DOSE VIAL) IJ ONE ×2 (08:56)
[2024-05-04] MEDS: BUPIVACAINE HCL/PF 0.5% (5MG/ML) 10 ML VIAL IJ ONE ×2 (09:18)
[2024-05-04] MEDS: methylPREDNISolone NA SUCC 125 MG/2 ML VIAL IVPB ONE ×2 (09:18)
[2024-05-04] MEDS: GENTAMICIN SO4 0.1% TOP CREAM 15 GM/TUBE TP ONE ×2 (09:31→10:11)
[2024-05-04] MEDS: BENZOIN/ALOE VERA/STORAX/TOLU 58 ML BOTTLE TP ONE (10:11)
[2024-05-04] MEDS: LACTATED RINGERS SOLUTION 1,000 ML IV SCH (11:06)
[2024-05-04] MEDS ORDERED: ALBUTEROL SO4 HFA INHALER IH PRN (13:10)
[2024-05-04] MEDS: ALBUTEROL SO4 2.5/IPRATROPIUM 0.5 INH SOL 3 ML VIAL.NEB. NEB SCH (13:50)
[2024-05-04] MEDS: oxyCODONE HCL 5 MG TABLET PO PRN ×2 (16:11→22:22)
[2024-05-04] MEDS: D5-1/2NS+20 MEQ KCL - 20 MEQ/1,000 ML INFUS.BAG IV SCH (16:44)
[2024-05-04] MEDS: MEROPENEM-0.9% SODIUM CHLORIDE 1 GM/50 ML BAG IVPB SCH (17:36)
[2024-05-04] MEDS: traZODone HCL 100 MG TABLET (FP) PO SCH (21:07)
[2024-05-04] MEDS: ROSUVASTATIN CA 20 MG TABLET PO SCH (21:07)
[2024-05-04] MEDS: MYCOPHENOLATE MOFETIL 500 MG TABLET PO SCH (21:07)
[2024-05-04] MEDS: GABAPENTIN 300 MG CAPSULE PO SCH (21:07)
[2024-05-04] MEDS: guaiFENesin 200 MG/10 ML 10 ML UNIT-DOSE CUPS PO PRN (22:22)
[2024-05-05] MEDS: LEVOTHYROXINE 75 MCG, LEVOTHYROXINE 100 MCG PO SCH (06:06)
[2024-05-05 06:14] VITALS: RESP 18
[2024-05-05] MEDS: LOSARTAN POTASSIUM 50 MG TABLET PO SCH (09:48)
[2024-05-05] MEDS: ENOXAPARIN NA (PORCINE) 40 MG/0.4 ML DISP.SYRIN SQ SCH (09:48)
[2024-05-05] MEDS: HYDROCHLOROTHIAZIDE 25 MG TABLET (FP) PO SCH (09:48)
[2024-05-05] MEDS: FAMOTIDINE 20 MG TABLET PO SCH (09:49)
[2024-05-05] MEDS: LIDOCAINE HCL 5% TOP OINTMENT 50 GM TUBE TP SCH (10:32)
[2024-05-05] MEDS: DOXYCYCLINE HYCLATE 100 MG CAPSULE PO SCH (17:15)
[2024-05-06 15:52] VITALS: BP 141/66; PULSE 71; TEMP 97.3
[2024-05-06] MEDS: SILVER SULFADIAZINE 1% TOP CREAM 50 GM JAR TP SCH (16:26)
== END 2024-05-06 18:49 | disposition home health service (06) | DRG 574 ==
LOC: JER 12:01 → JERBED 15:27 → J5S 19:35
PROVIDERS: ADMIT Internal Medicine; ATTEND Internal Medicine
PROC: 0JBQ0ZZ Excision of Right Foot Subcutaneous Tissue and Fascia, Open Approach (ICD-10-PCS; 2024-05-04)
PROC: 0JDQ0ZZ Extraction of Right Foot Subcutaneous Tissue and Fascia, Open Approach (ICD-10-PCS; 2024-05-04)
PROC: 0HBHXZZ Excision of Right Upper Leg Skin, External Approach (ICD-10-PCS; 2024-05-04)
PROC: 0HRMX74 Replacement of Right Foot Skin with Autologous Tissue Substitute, Partial Thickness, External Approach (ICD-10-PCS; principal; 2024-05-04 07:30)
DX: L03.115 Cellulitis of right lower limb (principal); F11.20 Opioid dependence, uncomplicated; L88 Pyoderma gangrenosum; E11.621 Type 2 diabetes mellitus with foot ulcer; E11.51 Type 2 diabetes mellitus with diabetic peripheral angiopathy without gangrene; L97.519 Non-pressure chronic ulcer of other part of right foot with unspecified severity; I10 Essential (primary) hypertension; E03.9 Hypothyroidism, unspecified; J44.9 Chronic obstructive pulmonary disease, unspecified; E78.5 Hyperlipidemia, unspecified; E78.00 Pure hypercholesterolemia, unspecified; R33.9 Retention of urine, unspecified
CPT/HCPCS: 36415; 70450-TC; 71045-TC-FY; 73630-TC-RT-FY; 80053; 80307; 81003; 82607; 82962; 83605; 83735; 84443; 85025; 85610; 85651; 85730; 86140; 86850; 86900; 86901; 87040; 87070; 87075; 87086; 87186; 87205; 87635; 88304-TC; 93005; 93010; 93922; 93926-TC; 94640; 94760; 99285-25; G0463-25; J0131; J7517